=== PATIENT | male | born 1965 | race Two or more races ===

== ENCOUNTER 2019-10-03 13:29 | Emergency (ER) | payer BC ==
[~2019-10-03] VITALS: Ht 170.2 cm; Wt 95.3 kg
[2019-10-03 14:57] LABS: Basophils # (auto) 0.1 uL; Eosinophils # (auto) 0.3 uL; Eosinophils % (auto) 2.6 % (0.0-7.0); Hemoglobin 15.8 g/dL (13.5-17.5); Lymphocytes # (auto) 2.7 uL; Mean Corpuscular Hemoglobin 30.9 pg (28.0-32.0); Mean Corpuscular Hgb Conc. 34.5 g/dL (32.0-36.0); Mean Corpuscular Volume 89.7 fL (80.0-100.0); Monocytes # (auto) 0.7 uL; Monocytes % (auto) 7.3 % (0.0-12.0); Neutrophils # (auto) 5.9 uL; Neutrophils % (auto) 61.1 % (37.0-80.0); Nucleated Red Blood Cells % 0.2 %; Platelet Count (auto) 262 10^3/uL (140-450); Red Blood Cells 5.12 10^6/uL (4.5-5.90); Red Cell Distribution Width 13.5 % (11.8-14.3); White Blood Cell 9.7 10^3/uL (4.4-10.8)
[2019-10-03 15:16] LABS: Albumin 3.3 g/dL (3.4-5.0); Calcium 9.1 mg/dL (8.5-10.1)
[2019-10-03 15:20] LABS: BUN/Creatinine Ratio 11.9; Bilirubin, Total 0.3 mg/dL (0.2-1.0)
[2019-10-03 16:09] VITALS: BP 143/93
== END 2019-10-03 16:16 | disposition home or self-care (01) ==
LOC: ER 13:29
DX: L03.115 Cellulitis of right lower limb (principal); E11.65 Type 2 diabetes mellitus with hyperglycemia
CPT/HCPCS: 36415; 73630; 80053; 85025; 87040

== ENCOUNTER 2021-11-11 11:57 | Inpatient (IN) | payer BC, MEDICAID ==
[2021-11-11] VITALS (7 sets, daily range): BP systolic 120–183; BP diastolic 66–113
[~2021-11-11] VITALS: Ht 157.5 cm; Wt 69.4 kg
[2021-11-11] MEDS ORDERED: EPINEPHrine HCL 1 MG/10 ML SYRG IV ONE (11:58)
[2021-11-11] MEDS ORDERED: MIDAZOLAM DRIP 50 mg/50mL 50 ML IV ONE (12:01)
[2021-11-11] MEDS ORDERED: HEPARIN SODIUM (PORCINE) 5000 UNITS/ML 1ML VIAL ONE (12:08)
[2021-11-11] MEDS ORDERED: SODIUM CHL 0.9% 50 ML ONE (12:09)
[2021-11-11] MEDS ORDERED: ANGIOMAX 250 MG VIAL IV ONE (12:09)
[2021-11-11] MEDS ORDERED: HEPARIN 1,000 UNITS/ml 1ML VIAL IV ONE (12:15)
[2021-11-11 12:32] LABS: Basophils # (auto) 0 10 ^3/uL (0-0.2); Basophils % (auto) 0.4 % (0.0-2.0); Eosinophils # (auto) 0 10 ^3/uL (0-0.8); Hematocrit 42.1 % (41.0-53.0); Hemoglobin 13.6 g/dL (13.5-17.5); Lymphocytes % (auto) 8.2 % (10.0-50.0); Mean Corpuscular Hgb Conc. 32.2 g/dL (32.0-36.0); Monocytes # (auto) 0.6 10 ^3/uL (0-1.3); Monocytes % (auto) 4.4 % (0.0-12.0); Neutrophils # (auto) 11.1 10 ^3/uL (1.6-8.6); Nucleated Red Blood Cells % 0.2 %; Red Blood Cells 4.52 10^6/uL (4.5-5.90); Red Cell Distribution Width 14.6 % (11.8-14.3); White Blood Cell 12.8 10^3/uL (4.4-10.8)
[2021-11-11] MEDS ORDERED: PROPOFOL 100 ML IV ONE (12:40)
[2021-11-11 12:45] LABS: Albumin 2.2 g/dL (3.4-5.0); Calcium 8.1 mg/dL (8.5-10.1); Magnesium 3.6 mg/dL (1.6-2.6); Potassium 4.8 mmol/L (3.5-5.1)
[2021-11-11] MEDS ORDERED: NOREPINEPHRINE 8 MG/250ML KIT 250 ML IV ONE (12:51)
[2021-11-11 12:52] LABS: Bilirubin, Total 0.3 mg/dL (0.2-1.0); Total Protein 6.1 g/dL (6.4-8.2)
[2021-11-11] MEDS ORDERED: DOPamine 1600MCG/ML D5W 250 ML IV ONE (12:54)
[2021-11-11 12:55] LABS: Urine Bacteria MANY /hpf (None Seen); Urine Blood Negative /uL (Negative); Urine Specific Gravity 1.016 (1.001-1.035); Urine Sperm PRESENT /hpf (None Seen); Urine WBC 2 /hpf (0 - 3)
[2021-11-11] MEDS ORDERED: ATROPINE SULF 1 MG/10ml SYR ONE (13:12)
[2021-11-11] MEDS ORDERED: ADENOSINE 6 MG/2 ML INJ IV ONE (13:15)
[2021-11-11] MEDS ORDERED: IOHEXOL 350 MG/ML 100ML IJ ONE (13:23)
[2021-11-11] MEDS ORDERED: ASPirin 325 MG TAB ONE (13:28)
[2021-11-11] MEDS ORDERED: TICAGRELOR 90 MG TAB ONE (13:28)
[2021-11-11] MEDS ORDERED: EPTIFIBATIDE INJ (2MG/ML) 10ML VIAL IV ONE (13:37)
[2021-11-11 13:50] LABS: INR 0.99 (0.9-1.15); Partial Thromboplastin Time 40.5 sec (23.6-33.0)
[2021-11-11] MEDS ORDERED: NITROGLYCERIN 0.4 MG SL TAB SL PRN ×2 (14:30)
[2021-11-11] MEDS ORDERED: MORPHINE SULFATE INJECTION 2 MG/ML SYRG IV PRN ×3 (14:30→15:30)
[2021-11-11] MEDS: fentaNYL Drip 2500mCg/250mlNS 250 ML IV SCH (14:30)
[2021-11-11] MEDS: NOREPINEPHRINE 8 MG/250ML KIT 250 ML IV SCH (14:50)
[2021-11-11] MEDS: PROPOFOL 100 ML IV SCH ×4 (14:50→21:52)
[2021-11-11] MEDS: MIDAZOLAM DRIP 50 mg/50mL 50 ML IV SCH ×3 (14:51→18:24)
[2021-11-11] MEDS: DOPamine 1600MCG/ML D5W 250 ML IV SCH (14:53)
[2021-11-11] MEDS ORDERED: ACCU-CHEK COMFORT CURVE STRIP VI SCH (15:00)
[2021-11-11] MEDS ORDERED: SODIUM CHLORIDE 0.9% 2,000 ML IV ONE (15:00)
[2021-11-11] MEDS ORDERED: InsuLIN R (HUMAN) 100 UNITS in SODIUM CHL 0.9% 99 ML IV SCH (15:00)
[2021-11-11] MEDS ORDERED: VANCOMYCIN PER PHARMACY 1,000 MG IV SCH (15:00)
[2021-11-11] MEDS ORDERED: DEXTROSE (50%) 50ML SYRG IV PRN ×2 (15:00→21:15)
[2021-11-11] MEDS ORDERED: D5W/SOD CHLO 0.9% 1,000 ML IV PRN (15:00)
[2021-11-11] MEDS ORDERED: DexAMETHasone INJECTION 10 MG in SODIUM CHL 3% 500 ML IV ONE (15:00)
[2021-11-11] MEDS ORDERED: NOREPINEPHRINE 8 MG/250ML KIT 250 ML IV SCH (15:00)
[2021-11-11] MEDS ORDERED: INSULIN LANTUS (GLARGINE) 1 /0.01ml (100units/ml) SC ONE (15:00)
[2021-11-11] MEDS ORDERED: MORPHINE SULFATE 4 MG/ML SYR/VIAL IV PRN (15:00)
[2021-11-11] MEDS ORDERED: SOD CHL 0.9%/ KCL 20MEQ 1,000 ML IV PRN (15:00)
[2021-11-11] MEDS ORDERED: VANCOMYCIN 1GM/250ML 250 ML IV ONE (15:30)
[2021-11-11] MEDS ORDERED: DexAMETHasone SOD PHOS 10MG/1ML VIAL INJ IV ONE (15:30)
[2021-11-11] MEDS ORDERED: REMDESIVIR PER PHARMACY 0 ML IV SCH (16:15)
[2021-11-11] MEDS ORDERED: ALBUMIN 25% 100 ML IV ONE (16:15)
[2021-11-11] MEDS ORDERED: ALBUTEROL SULF HFA 90MCG INH 200DOSE IN PRN (16:15)
[2021-11-11] MEDS ORDERED: ALBUMIN 25% 100 ML IV SCH (16:15)
[2021-11-11] MEDS ORDERED: PANTOPRAZOLE 40 MG/10 ML VIAL INJ IV ONE (16:15)
[2021-11-11 16:18] LABS: Anion Gap 15 (5-15); Blood Urea Nitrogen 36 mg/dL (7-18); Carbon Dioxide 16 mmol/L (21-32); Chloride 99 mmol/L (98-107); Magnesium 3.7 mg/dL (1.6-2.6); Sodium 130 mmol/L (136-145)
[2021-11-11 16:25] LABS: Cholesterol 103 mg/dL (< 200)
[2021-11-11 16:28] LABS: GFR African American 44 mL/min; GFR Non-African American 37 mL/min; Phosphorus 6.1 mg/dL (2.5-4.90)
[2021-11-11 16:28] LABS: HDL Cholesterol 44 mg/dL (40-59); LDL Cholesterol 48 mg/dL (< 100); Triglycerides 194 mg/dL (< 150)
[2021-11-11 16:29] LABS: INR 3.08 (0.9-1.15)
[2021-11-11 16:36] LABS: Lactic Acid w/Reflex 6.1 mmol/L (0.4-2.0)
[2021-11-11 16:43] LABS: Thyroid Stimulating Hormone 0.81 uIU/mL (0.358-3.74)
[2021-11-11 17:17] LABS: Glucose 601 mg/dL (74-106); Potassium 6.3 mmol/L (3.5-5.1)
[2021-11-11] MEDS: FUROSEMIDE 20 MG/2 ML VIAL IV SCH (18:00)
[2021-11-11 19:23] LABS: Calcium 7.4 mg/dL (8.5-10.1)
[2021-11-11] MEDS ORDERED: REMDESIVIR 200 MG in NS 210ml LOADING DOSE ADULT IV ONE (20:00)
[2021-11-11] MEDS: SODIUM CHLORIDE 0.9% 1,000 ML IV SCH ×2 (20:00→22:30)
[2021-11-11 20:29] LABS: Potassium 5.7 mmol/L (3.5-5.1)
[2021-11-11] MEDS ORDERED: SODIUM ZIRCONIUM CYCL 10 GM PAK PO ONE (21:15)
[2021-11-11] MEDS: InsuLIN R (HUMAN) 100 UNITS in SODIUM CHL 0.9% 99 ML IV SCH ×2 (21:30→23:00)
[2021-11-11] MEDS: SODIUM CHLOR 0.9% PF (SALINE LOCK) 10ML VIAL/SYR IV SCH (21:56)
[2021-11-11] MEDS: POTASSIUM CHL 20 Meq TABLET PO SCH (21:57)
[2021-11-11] MEDS ORDERED: BUDESONIDE (INHALATION) 180 MCG IH IN SCH (22:00)
[2021-11-11] MEDS: TICAGRELOR 90 MG TAB PO SCH (22:00)
[2021-11-11] MEDS: BUDESONIDE (INHALATION) 0.5 MG/2 ML NEB NEB SCH (22:07)
[2021-11-11] MEDS: ALBUTEROL SULF 2.5 MG/0.5ML(0.5%) NEB SOLN NEB PRN (22:07)
[2021-11-11] MEDS: ACCU-CHEK COMFORT CURVE STRIP VI SCH (22:30)
[2021-11-11] MEDS ORDERED: SODIUM BICARBONATE 8.4 % INJ 50ML VIAL IV ONE (22:30)
[2021-11-11] MEDS: SODIUM BICARBONATE 50ML VIAL 100 ML in SOD CHL 0.45% 1,000 ML IV SCH (23:00)
[2021-11-12] VITALS (30 sets, daily range): BP systolic 88–134; BP diastolic 50–79
[2021-11-12] MEDS: PIPERACILLIN-TAZOB 3.375GM 100 ML IV SCH ×6 (00:11→23:47)
[2021-11-12] MEDS: ACCU-CHEK COMFORT CURVE STRIP VI SCH ×7 (00:12→23:47)
[2021-11-12] MEDS: ALBUMIN 25% 100 ML IV SCH ×2 (00:14→08:00)
[2021-11-12] MEDS: InsuLIN R (HUMAN) 100 UNITS in SODIUM CHL 0.9% 99 ML IV SCH (00:19)
[2021-11-12 03:04] LABS: Basophils # (auto) 0 10 ^3/uL (0-0.2); Basophils % (auto) 0.2 % (0.0-2.0); Eosinophils # (auto) 0 10 ^3/uL (0-0.8); Hematocrit 33.4 % (41.0-53.0); Hemoglobin 11.4 g/dL (13.5-17.5); Lymphocytes # (auto) 0.5 10 ^3/uL (0.4-5.4); Lymphocytes % (auto) 4.7 % (10.0-50.0); Mean Corpuscular Hemoglobin 29.6 pg (28.0-32.0); Mean Corpuscular Hgb Conc. 34.1 g/dL (32.0-36.0); Mean Corpuscular Volume 86.6 fL (80.0-100.0); Monocytes # (auto) 0.8 10 ^3/uL (0-1.3); Monocytes % (auto) 8.4 % (0.0-12.0); Neutrophils # (auto) 8.5 10 ^3/uL (1.6-8.6); Neutrophils % (auto) 86.7 % (37.0-80.0); Nucleated Red Blood Cells % 0.1 %; Red Blood Cells 3.85 10^6/uL (4.5-5.90); Red Cell Distribution Width 14.5 % (11.8-14.3); White Blood Cell 9.8 10^3/uL (4.4-10.8)
[2021-11-12 03:15] LABS: INR 1.06 (0.9-1.15); Partial Thromboplastin Time 35.7 sec (23.6-33.0)
[2021-11-12 03:37] LABS: BUN/Creatinine Ratio 19.1; Calcium 7.1 mg/dL (8.5-10.1); Magnesium 2.3 mg/dL (1.6-2.6); Potassium 3.8 mmol/L (3.5-5.1)
[2021-11-12 03:39] LABS: Bilirubin, Total 0.8 mg/dL (0.2-1.0); Phosphorus 2.5 mg/dL (2.5-4.90); Total Protein 5.9 g/dL (6.4-8.2)
[2021-11-12] MEDS: BUDESONIDE (INHALATION) 0.5 MG/2 ML NEB NEB SCH ×2 (06:10→22:31)
[2021-11-12] MEDS: ALBUTEROL SULF 2.5 MG/0.5ML(0.5%) NEB SOLN NEB PRN ×2 (06:10→22:31)
[2021-11-12] MEDS: SODIUM CHLOR 0.9% PF (SALINE LOCK) 10ML VIAL/SYR IV SCH ×3 (06:22→21:55)
[2021-11-12] MEDS: FUROSEMIDE 20 MG/2 ML VIAL IV SCH ×2 (06:22→17:20)
[2021-11-12] MEDS: PROPOFOL 100 ML IV SCH ×4 (07:58→19:07)
[2021-11-12] MEDS: MIDAZOLAM DRIP 50 mg/50mL 50 ML IV SCH ×3 (07:59→16:07)
[2021-11-12] MEDS: DOPamine 1600MCG/ML D5W 250 ML IV SCH (08:19)
[2021-11-12] MEDS: ENOXAPARIN SOD 40 MG/0.4 ML SYRINGE SC SCH (10:00)
[2021-11-12] MEDS ORDERED: INSULIN LANTUS (GLARGINE) 1 /0.01ml (100units/ml) SC SCH (10:00)
[2021-11-12] MEDS: PANTOPRAZOLE 40 MG/10 ML VIAL INJ IV SCH (10:00)
[2021-11-12] MEDS: ASPirin 81 mg TAB PO SCH (10:00)
[2021-11-12] MEDS ORDERED: DexAMETHasone SOD PHOS 10MG/1ML VIAL INJ IV ONE (10:30)
[2021-11-12] MEDS ORDERED: INSULIN LANTUS (GLARGINE) 1 /0.01ml (100units/ml) SC ONE (11:00)
[2021-11-12] MEDS: CHOLECALCIFEROL (VITD3) 2,000 UNIT CAP/TAB PO SCH (11:06)
[2021-11-12] MEDS: ASCORBIC ACID 1,000 MG TAB PO SCH (11:06)
[2021-11-12] MEDS: TICAGRELOR 90 MG TAB PO SCH ×2 (11:07→21:56)
[2021-11-12] MEDS: IVERMECTIN 3 MG TAB PO SCH (11:07)
[2021-11-12] MEDS: POTASSIUM CHL 20 Meq TABLET PO SCH ×2 (11:08→21:56)
[2021-11-12] MEDS: SODIUM BICARBONATE 50ML VIAL 100 ML in SOD CHL 0.45% 1,000 ML IV SCH (11:27)
[2021-11-12 11:39] LABS: BUN/Creatinine Ratio 16.9; Calcium 6.6 mg/dL (8.5-10.1); Potassium 3.5 mmol/L (3.5-5.1)
[2021-11-12] MEDS: NOREPINEPHRINE 8 MG/250ML KIT 250 ML IV SCH (13:00)
[2021-11-12] MEDS: fentaNYL Drip 2500mCg/250mlNS 250 ML IV SCH (14:23)
[2021-11-12] MEDS: REMDESIVIR 100mg 100 MG in SODIUM CHL 0.9% 230 ML IV SCH (14:58)
[2021-11-12] MEDS ORDERED: Glucerna 1.2 Cal 1Liter BOTTLE GT SCH (15:00)
[2021-11-12] MEDS ORDERED: DEXTROSE (50%) 50ML SYRG IV PRN (16:45)
[2021-11-12] MEDS: ACETAMINOPHEN 500 MG TAB PO PRN (17:21)
[2021-11-12] MEDS: InsuLIN REG 1unit/0.01ml Soln (100units/ml) SC SCH ×2 (18:00→23:48)
[2021-11-12] MEDS: ATORVASTATIN 20 MG TAB PO SCH ×2 (21:56)
[2021-11-12 22:55] LABS: BUN/Creatinine Ratio 15.4; Calcium 7.3 mg/dL (8.5-10.1)
[2021-11-13] VITALS (30 sets, daily range): BP systolic 99–141; BP diastolic 65–82
[2021-11-13] MEDS: NOREPINEPHRINE 8 MG/250ML KIT 250 ML IV SCH ×2 (01:00→13:08)
[2021-11-13] MEDS: SODIUM BICARBONATE 50ML VIAL 100 ML in SOD CHL 0.45% 1,000 ML IV SCH (01:00)
[2021-11-13] MEDS: MIDAZOLAM DRIP 50 mg/50mL 50 ML IV SCH ×4 (02:16→17:38)
[2021-11-13 04:46] LABS: Basophils # (auto) 0 10 ^3/uL (0-0.2); Eosinophils # (auto) 0 10 ^3/uL (0-0.8); Hematocrit 33.8 % (41.0-53.0); Hemoglobin 11.6 g/dL (13.5-17.5); Lymphocytes # (auto) 0.2 10 ^3/uL (0.4-5.4); Lymphocytes % (auto) 1.7 % (10.0-50.0); Mean Corpuscular Hgb Conc. 34.2 g/dL (32.0-36.0); Mean Corpuscular Volume 87.8 fL (80.0-100.0); Monocytes # (auto) 0.5 10 ^3/uL (0-1.3); Monocytes % (auto) 4.1 % (0.0-12.0); Neutrophils # (auto) 10.6 10 ^3/uL (1.6-8.6); Neutrophils % (auto) 94.2 % (37.0-80.0); Red Blood Cells 3.85 10^6/uL (4.5-5.90); Red Cell Distribution Width 14.6 % (11.8-14.3); White Blood Cell 11.3 10^3/uL (4.4-10.8)
[2021-11-13 05:01] LABS: BUN/Creatinine Ratio 16.1; Calcium 7.8 mg/dL (8.5-10.1); Potassium 4.2 mmol/L (3.5-5.1)
[2021-11-13] MEDS: ACCU-CHEK COMFORT CURVE STRIP VI SCH ×7 (05:44→23:28)
[2021-11-13] MEDS: FUROSEMIDE 20 MG/2 ML VIAL IV SCH ×2 (05:44→17:32)
[2021-11-13] MEDS: SODIUM CHLOR 0.9% PF (SALINE LOCK) 10ML VIAL/SYR IV SCH ×3 (05:44→21:33)
[2021-11-13] MEDS: PIPERACILLIN-TAZOB 3.375GM 100 ML IV SCH ×4 (05:44→23:28)
[2021-11-13] MEDS: InsuLIN REG 1unit/0.01ml Soln (100units/ml) SC SCH ×5 (05:45→23:25)
[2021-11-13] MEDS: ALBUTEROL SULF 2.5 MG/0.5ML(0.5%) NEB SOLN NEB PRN ×2 (06:34→23:13)
[2021-11-13] MEDS: BUDESONIDE (INHALATION) 0.5 MG/2 ML NEB NEB SCH ×2 (06:34→23:14)
[2021-11-13] MEDS ORDERED: DEXTROSE (50%) 50ML SYRG IV PRN (08:30)
[2021-11-13] MEDS: TICAGRELOR 90 MG TAB PO SCH ×2 (09:31→21:31)
[2021-11-13] MEDS: CHOLECALCIFEROL (VITD3) 2,000 UNIT CAP/TAB PO SCH (09:31)
[2021-11-13] MEDS: ASPirin 81 mg TAB PO SCH (09:31)
[2021-11-13] MEDS: PANTOPRAZOLE 40 MG/10 ML VIAL INJ IV SCH (09:31)
[2021-11-13] MEDS: POTASSIUM CHL 20 Meq TABLET PO SCH ×2 (09:31→21:31)
[2021-11-13] MEDS: DexAMETHasone SOD PHOS 10MG/1ML VIAL INJ IV SCH (09:31)
[2021-11-13] MEDS: IVERMECTIN 3 MG TAB PO SCH (09:32)
[2021-11-13] MEDS: ASCORBIC ACID 1,000 MG TAB PO SCH (09:43)
[2021-11-13] MEDS ORDERED: INSULIN LANTUS (GLARGINE) 1 /0.01ml (100units/ml) SC SCH ×2 (10:00)
[2021-11-13] MEDS: ENOXAPARIN SOD 40 MG/0.4 ML SYRINGE SC SCH ×2 (10:00→11:10)
[2021-11-13 13:06] LABS: Hematocrit 34.8 % (41.0-53.0); Hemoglobin 11.5 g/dL (13.5-17.5); Mean Corpuscular Hemoglobin 29.8 pg (28.0-32.0); Mean Corpuscular Hgb Conc. 33.2 g/dL (32.0-36.0); Mean Corpuscular Volume 89.8 fL (80.0-100.0); Red Blood Cells 3.88 10^6/uL (4.5-5.90); Red Cell Distribution Width 15.1 % (11.8-14.3); White Blood Cell 14.4 10^3/uL (4.4-10.8)
[2021-11-13 13:08] LABS: Basophils % (manual) 0 (0.0-2.0); Blast Cells 0; Eosinophils % (manual) 0 (0-7); Metamyelocytes % 0; Myelocytes % 0; Promyelocytes % 0; Reactive Lymphocytes 0
[2021-11-13 13:27] LABS: Band Neutrophils % (manual) 12; Lymphocytes % (manual) 5 (10.0-50.0); Monocytes % (manual) 8 (0-12)
[2021-11-13] MEDS: PROPOFOL 100 ML IV SCH ×3 (14:31→21:32)
[2021-11-13] MEDS: REMDESIVIR 100mg 100 MG in SODIUM CHL 0.9% 230 ML IV SCH (15:32)
[2021-11-13] MEDS: fentaNYL Drip 2500mCg/250mlNS 250 ML IV SCH (17:35)
[2021-11-13] MEDS: DOPamine 1600MCG/ML D5W 250 ML IV SCH (17:36)
[2021-11-13] MEDS: ATORVASTATIN 20 MG TAB PO SCH (21:31)
[2021-11-14] VITALS (41 sets, daily range): BP systolic 91–127; BP diastolic 58–99
[2021-11-14] MEDS ORDERED: INSULIN LANTUS (GLARGINE) 1 /0.01ml (100units/ml) SC ONE
[2021-11-14] MEDS: MIDAZOLAM DRIP 50 mg/50mL 50 ML IV SCH ×5 (01:22→18:02)
[2021-11-14 04:50] LABS: Basophils # (auto) 0 10 ^3/uL (0-0.2); Eosinophils # (auto) 0 10 ^3/uL (0-0.8); Eosinophils % (auto) 0.1 % (0.0-7.0); Hematocrit 33.2 % (41.0-53.0); Hemoglobin 11.2 g/dL (13.5-17.5); Lymphocytes # (auto) 0.2 10 ^3/uL (0.4-5.4); Lymphocytes % (auto) 1.2 % (10.0-50.0); Mean Corpuscular Hemoglobin 29.5 pg (28.0-32.0); Mean Corpuscular Hgb Conc. 33.6 g/dL (32.0-36.0); Mean Corpuscular Volume 87.7 fL (80.0-100.0); Monocytes # (auto) 0.7 10 ^3/uL (0-1.3); Monocytes % (auto) 4.7 % (0.0-12.0); Neutrophils # (auto) 13.3 10 ^3/uL (1.6-8.6); Red Blood Cells 3.79 10^6/uL (4.5-5.90); Red Cell Distribution Width 14.8 % (11.8-14.3); White Blood Cell 14.1 10^3/uL (4.4-10.8)
[2021-11-14 04:58] LABS: Calcium 6.6 mg/dL (8.5-10.1); Potassium 3.8 mmol/L (3.5-5.1)
[2021-11-14 04:59] LABS: BUN/Creatinine Ratio 15.1
[2021-11-14] MEDS: FUROSEMIDE 20 MG/2 ML VIAL IV SCH (05:57)
[2021-11-14] MEDS: SODIUM CHLOR 0.9% PF (SALINE LOCK) 10ML VIAL/SYR IV SCH ×3 (05:57→22:02)
[2021-11-14] MEDS: ACCU-CHEK COMFORT CURVE STRIP VI SCH ×6 (05:57→17:39)
[2021-11-14] MEDS: PIPERACILLIN-TAZOB 3.375GM 100 ML IV SCH (05:57)
[2021-11-14] MEDS: InsuLIN REG 1unit/0.01ml Soln (100units/ml) SC SCH ×3 (05:58→17:21)
[2021-11-14] MEDS: BUDESONIDE (INHALATION) 0.5 MG/2 ML NEB NEB SCH ×2 (09:00→18:59)
[2021-11-14] MEDS: ALBUTEROL SULF 2.5 MG/0.5ML(0.5%) NEB SOLN NEB PRN ×3 (09:00→18:59)
[2021-11-14] MEDS: ASPirin 81 mg TAB PO SCH (09:39)
[2021-11-14] MEDS: PANTOPRAZOLE 40 MG/10 ML VIAL INJ IV SCH (09:39)
[2021-11-14] MEDS: DexAMETHasone SOD PHOS 10MG/1ML VIAL INJ IV SCH (09:39)
[2021-11-14] MEDS: ENOXAPARIN SOD 40 MG/0.4 ML SYRINGE SC SCH (09:39)
[2021-11-14] MEDS: CHOLECALCIFEROL (VITD3) 2,000 UNIT CAP/TAB PO SCH (09:40)
[2021-11-14] MEDS: ASCORBIC ACID 1,000 MG TAB PO SCH (09:40)
[2021-11-14] MEDS: IVERMECTIN 3 MG TAB PO SCH (09:40)
[2021-11-14] MEDS ORDERED: INSULIN LANTUS (GLARGINE) 1 /0.01ml (100units/ml) SC SCH (10:00)
[2021-11-14] MEDS: POTASSIUM CHL 20 Meq TABLET PO SCH (11:44)
[2021-11-14] MEDS: TICAGRELOR 90 MG TAB PO SCH ×2 (11:44→22:02)
[2021-11-14] MEDS: PROPOFOL 100 ML IV SCH ×3 (12:07→18:02)
[2021-11-14 12:41] LABS: Alcohol, Urine < 3.0 mg/dL (0-10); Amphetamine Screen, Urine NEGATIVE (NEGATIVE); Barbiturate Scree,Urine NEGATIVE (NEGATIVE); Benzodiazephine Screen, Urine POSITIVE (NEGATIVE); Cannabinoid Screen, Urine NEGATIVE (NEGATIVE); Cocaine Screen, Urine NEGATIVE (NEGATIVE); Opiate Scree,Urine NEGATIVE (NEGATIVE); Phencyclidine Screen, Urine NEGATIVE (NEGATIVE)
[2021-11-14] MEDS: REMDESIVIR 100mg 100 MG in SODIUM CHL 0.9% 230 ML IV SCH (14:21)
[2021-11-14] MEDS: NOREPINEPHRINE 8 MG/250ML KIT 250 ML IV SCH (15:59)
[2021-11-14] MEDS: ATORVASTATIN 20 MG TAB PO SCH (22:03)
[2021-11-14] MEDS: INSULIN LANTUS (GLARGINE) 1 /0.01ml (100units/ml) SC SCH (22:07)
[2021-11-15] VITALS (66 sets, daily range): BP systolic 66–159; BP diastolic 57–98
[2021-11-15] MEDS: InsuLIN REG 1unit/0.01ml Soln (100units/ml) SC SCH ×4 (00:01→19:25)
[2021-11-15] MEDS: PROPOFOL 100 ML IV SCH (00:35)
[2021-11-15] MEDS: MIDAZOLAM DRIP 50 mg/50mL 50 ML IV SCH (03:21)
[2021-11-15] MEDS: ALBUTEROL SULF 2.5 MG/0.5ML(0.5%) NEB SOLN NEB PRN ×3 (05:45→22:12)
[2021-11-15] MEDS: SODIUM CHLOR 0.9% PF (SALINE LOCK) 10ML VIAL/SYR IV SCH ×3 (05:46→21:35)
[2021-11-15] MEDS: ACCU-CHEK COMFORT CURVE STRIP VI SCH ×8 (05:46→18:00)
[2021-11-15 05:47] LABS: Potassium 3.8 mmol/L (3.5-5.1)
[2021-11-15 05:54] LABS: Albumin 2.2 g/dL (3.4-5.0); BUN/Creatinine Ratio 18.2; Calcium 6.7 mg/dL (8.5-10.1); Total Protein 5.4 g/dL (6.4-8.2)
[2021-11-15 08:17] LABS: Basophils # (auto) 0 10 ^3/uL (0-0.2); Basophils % (auto) 0.2 % (0.0-2.0); Eosinophils # (auto) 0 10 ^3/uL (0-0.8); Hematocrit 31.8 % (41.0-53.0); Hemoglobin 10.8 g/dL (13.5-17.5); Lymphocytes # (auto) 0.2 10 ^3/uL (0.4-5.4); Lymphocytes % (auto) 1.5 % (10.0-50.0); Mean Corpuscular Hemoglobin 29.8 pg (28.0-32.0); Mean Corpuscular Volume 87.7 fL (80.0-100.0); Monocytes # (auto) 0.8 10 ^3/uL (0-1.3); Monocytes % (auto) 6.4 % (0.0-12.0); Neutrophils # (auto) 12.1 10 ^3/uL (1.6-8.6); Neutrophils % (auto) 91.9 % (37.0-80.0); Red Blood Cells 3.63 10^6/uL (4.5-5.90); White Blood Cell 13.1 10^3/uL (4.4-10.8)
[2021-11-15] MEDS: BUDESONIDE (INHALATION) 0.5 MG/2 ML NEB NEB SCH ×2 (10:00→22:12)
[2021-11-15] MEDS: INSULIN LANTUS (GLARGINE) 1 /0.01ml (100units/ml) SC SCH (10:00)
[2021-11-15] MEDS: fentaNYL Drip 2500mCg/250mlNS 250 ML IV SCH ×2 (10:21→14:30)
[2021-11-15] MEDS: PANTOPRAZOLE 40 MG/10 ML VIAL INJ IV SCH (10:24)
[2021-11-15] MEDS: DexAMETHasone SOD PHOS 10MG/1ML VIAL INJ IV SCH (10:24)
[2021-11-15] MEDS: TICAGRELOR 90 MG TAB PO SCH ×2 (10:24→21:35)
[2021-11-15] MEDS: IVERMECTIN 3 MG TAB PO SCH (10:24)
[2021-11-15] MEDS: ASPirin 81 mg TAB PO SCH (10:24)
[2021-11-15] MEDS: ASCORBIC ACID 1,000 MG TAB PO SCH (10:24)
[2021-11-15] MEDS: CHOLECALCIFEROL (VITD3) 2,000 UNIT CAP/TAB PO SCH (10:25)
[2021-11-15] MEDS: ENOXAPARIN SOD 40 MG/0.4 ML SYRINGE SC SCH (10:27)
[2021-11-15] MEDS ORDERED: METOPROLOL TARTRATE 25 MG TAB PO ONE (11:15)
[2021-11-15] MEDS: NOREPINEPHRINE 8 MG/250ML KIT 250 ML IV SCH (14:30)
[2021-11-15] MEDS ORDERED: DEXTROSE 10% 250 ML IV ONE (17:45)
[2021-11-15] MEDS: ATORVASTATIN 20 MG TAB PO SCH (21:35)
[2021-11-15] MEDS: METOPROLOL TARTRATE 25 MG TAB PO SCH (21:35)
[2021-11-16] VITALS (68 sets, daily range): BP systolic 87–127; BP diastolic 55–76
[2021-11-16] MEDS: ACETAMINOPHEN 500 MG TAB PO PRN (02:57)
[2021-11-16 05:44] LABS: Hematocrit 35.5 % (41.0-53.0); Hemoglobin 11.5 g/dL (13.5-17.5); Mean Corpuscular Hemoglobin 28.8 pg (28.0-32.0); Mean Corpuscular Hgb Conc. 32.4 g/dL (32.0-36.0); Red Blood Cells 3.99 10^6/uL (4.5-5.90); Red Cell Distribution Width 15.4 % (11.8-14.3); White Blood Cell 15.3 10^3/uL (4.4-10.8)
[2021-11-16] MEDS: InsuLIN REG 1unit/0.01ml Soln (100units/ml) SC SCH ×4 (06:00→18:29)
[2021-11-16 06:03] LABS: Calcium 7.1 mg/dL (8.5-10.1); Potassium 4.1 mmol/L (3.5-5.1)
[2021-11-16 06:04] LABS: BUN/Creatinine Ratio 27.8
[2021-11-16 06:06] LABS: Basophils % (manual) 0 (0.0-2.0); Blast Cells 0; Eosinophils % (manual) 0 (0-7); Metamyelocytes % 0; Myelocytes % 0; Promyelocytes % 0; Reactive Lymphocytes 0
[2021-11-16] MEDS: BUDESONIDE (INHALATION) 0.5 MG/2 ML NEB NEB SCH ×2 (06:06→22:06)
[2021-11-16] MEDS: ALBUTEROL SULF 2.5 MG/0.5ML(0.5%) NEB SOLN NEB PRN ×2 (06:06→22:06)
[2021-11-16] MEDS: ACCU-CHEK COMFORT CURVE STRIP VI SCH ×8 (06:29→18:29)
[2021-11-16] MEDS: SODIUM CHLOR 0.9% PF (SALINE LOCK) 10ML VIAL/SYR IV SCH ×3 (06:29→21:02)
[2021-11-16] MEDS: PROPOFOL 100 ML IV SCH ×2 (06:30→21:03)
[2021-11-16 07:05] LABS: Band Neutrophils % (manual) 15; Lymphocytes % (manual) 5 (10.0-50.0); Monocytes % (manual) 5 (0-12)
[2021-11-16] MEDS: IVERMECTIN 3 MG TAB PO SCH (10:00)
[2021-11-16] MEDS: METOPROLOL TARTRATE 25 MG TAB PO SCH ×2 (10:00→21:02)
[2021-11-16] MEDS: TICAGRELOR 90 MG TAB PO SCH ×2 (10:00→21:02)
[2021-11-16] MEDS: ASPirin 81 mg TAB PO SCH (10:00)
[2021-11-16] MEDS: PANTOPRAZOLE 40 MG/10 ML VIAL INJ IV SCH (10:00)
[2021-11-16] MEDS: DexAMETHasone SOD PHOS 10MG/1ML VIAL INJ IV SCH (10:00)
[2021-11-16] MEDS: ASCORBIC ACID 1,000 MG TAB PO SCH (10:00)
[2021-11-16] MEDS: ENOXAPARIN SOD 40 MG/0.4 ML SYRINGE SC SCH (10:00)
[2021-11-16] MEDS: CHOLECALCIFEROL (VITD3) 2,000 UNIT CAP/TAB PO SCH (10:00)
[2021-11-16] MEDS: FREE WATER GT SCH ×3 (14:00→21:00)
[2021-11-16] MEDS: MIDAZOLAM DRIP 50 mg/50mL 50 ML IV SCH (14:30)
[2021-11-16] MEDS: NOREPINEPHRINE 8 MG/250ML KIT 250 ML IV SCH (14:30)
[2021-11-16] MEDS: fentaNYL Drip 2500mCg/250mlNS 250 ML IV SCH (14:30)
[2021-11-16] MEDS: ATORVASTATIN 20 MG TAB PO SCH (21:02)
[2021-11-17] VITALS (67 sets, daily range): BP systolic 94–154; BP diastolic 47–78
[2021-11-17] MEDS: ACCU-CHEK COMFORT CURVE STRIP VI SCH ×8 (00:24→17:49)
[2021-11-17] MEDS: FREE WATER GT SCH ×6 (01:45→21:19)
[2021-11-17 03:58] LABS: Basophils # (auto) 0.1 10 ^3/uL (0-0.2); Basophils % (auto) 0.4 % (0.0-2.0); Eosinophils # (auto) 0 10 ^3/uL (0-0.8); Hematocrit 34.5 % (41.0-53.0); Hemoglobin 11.4 g/dL (13.5-17.5); Lymphocytes # (auto) 0.1 10 ^3/uL (0.4-5.4); Mean Corpuscular Hemoglobin 29.2 pg (28.0-32.0); Mean Corpuscular Hgb Conc. 32.9 g/dL (32.0-36.0); Mean Corpuscular Volume 88.8 fL (80.0-100.0); Monocytes # (auto) 0.4 10 ^3/uL (0-1.3); Monocytes % (auto) 2.4 % (0.0-12.0); Neutrophils # (auto) 14.3 10 ^3/uL (1.6-8.6); Neutrophils % (auto) 96.2 % (37.0-80.0); Nucleated Red Blood Cells % 0.1 %; Red Blood Cells 3.89 10^6/uL (4.5-5.90); Red Cell Distribution Width 15.4 % (11.8-14.3); White Blood Cell 14.9 10^3/uL (4.4-10.8)
[2021-11-17 04:07] LABS: Calcium 7.3 mg/dL (8.5-10.1); Potassium 4.5 mmol/L (3.5-5.1)
[2021-11-17 04:08] LABS: BUN/Creatinine Ratio 32.7
[2021-11-17] MEDS: SODIUM CHLOR 0.9% PF (SALINE LOCK) 10ML VIAL/SYR IV SCH ×3 (05:45→21:19)
[2021-11-17] MEDS: InsuLIN REG 1unit/0.01ml Soln (100units/ml) SC SCH ×4 (06:00→17:48)
[2021-11-17] MEDS: BUDESONIDE (INHALATION) 0.5 MG/2 ML NEB NEB SCH ×2 (06:05→21:55)
[2021-11-17] MEDS: ALBUTEROL SULF 2.5 MG/0.5ML(0.5%) NEB SOLN NEB PRN (06:11)
[2021-11-17] MEDS: PROPOFOL 100 ML IV SCH ×2 (06:42→21:20)
[2021-11-17] MEDS: MIDAZOLAM DRIP 50 mg/50mL 50 ML IV SCH ×2 (06:42→21:21)
[2021-11-17] MEDS: DexAMETHasone SOD PHOS 10MG/1ML VIAL INJ IV SCH (10:54)
[2021-11-17] MEDS: PANTOPRAZOLE 40 MG/10 ML VIAL INJ IV SCH (10:55)
[2021-11-17] MEDS: ASPirin 81 mg TAB PO SCH (10:55)
[2021-11-17] MEDS: METOPROLOL TARTRATE 25 MG TAB PO SCH ×2 (10:55→21:19)
[2021-11-17] MEDS: TICAGRELOR 90 MG TAB PO SCH ×2 (10:55→21:19)
[2021-11-17] MEDS: ASCORBIC ACID 1,000 MG TAB PO SCH (10:56)
[2021-11-17] MEDS: CHOLECALCIFEROL (VITD3) 2,000 UNIT CAP/TAB PO SCH (10:56)
[2021-11-17] MEDS: ENOXAPARIN SOD 40 MG/0.4 ML SYRINGE SC SCH (10:56)
[2021-11-17] MEDS: NOREPINEPHRINE 8 MG/250ML KIT 250 ML IV SCH (14:30)
[2021-11-17] MEDS: fentaNYL Drip 2500mCg/250mlNS 250 ML IV SCH (14:30)
[2021-11-17] MEDS ORDERED: DIGOXIN (250MCG/ML) 2 ML AMPULE IV ONE (16:00)
[2021-11-17] MEDS: DOBUTamine 1000MCG/ML 250 ML IV SCH (16:47)
[2021-11-17] MEDS: ATORVASTATIN 20 MG TAB PO SCH (21:19)
[2021-11-18] VITALS (66 sets, daily range): BP systolic 91–154; BP diastolic 56–83
[2021-11-18] MEDS: PROPOFOL 100 ML IV SCH ×2 (01:47→20:00)
[2021-11-18] MEDS: MIDAZOLAM DRIP 50 mg/50mL 50 ML IV SCH ×2 (01:48→20:00)
[2021-11-18] MEDS: FREE WATER GT SCH ×6 (01:49→22:00)
[2021-11-18 03:39] LABS: Basophils # (auto) 0 10 ^3/uL (0-0.2); Basophils % (auto) 0.2 % (0.0-2.0); Eosinophils # (auto) 0 10 ^3/uL (0-0.8); Eosinophils % (auto) 0.2 % (0.0-7.0); Hemoglobin 10.9 g/dL (13.5-17.5); Lymphocytes # (auto) 0.2 10 ^3/uL (0.4-5.4); Lymphocytes % (auto) 1.1 % (10.0-50.0); Mean Corpuscular Hemoglobin 29.4 pg (28.0-32.0); Mean Corpuscular Volume 89.1 fL (80.0-100.0); Monocytes # (auto) 0.3 10 ^3/uL (0-1.3); Monocytes % (auto) 1.9 % (0.0-12.0); Neutrophils # (auto) 15.2 10 ^3/uL (1.6-8.6); Neutrophils % (auto) 96.6 % (37.0-80.0); Nucleated Red Blood Cells % 0.1 %; Red Blood Cells 3.71 10^6/uL (4.5-5.90); Red Cell Distribution Width 15.2 % (11.8-14.3); White Blood Cell 15.8 10^3/uL (4.4-10.8)
[2021-11-18 03:55] LABS: Calcium 7.5 mg/dL (8.5-10.1)
[2021-11-18] MEDS: SODIUM CHLOR 0.9% PF (SALINE LOCK) 10ML VIAL/SYR IV SCH ×3 (06:00→22:00)
[2021-11-18] MEDS: ACCU-CHEK COMFORT CURVE STRIP VI SCH ×9 (06:00→23:32)
[2021-11-18] MEDS: InsuLIN REG 1unit/0.01ml Soln (100units/ml) SC SCH ×5 (06:00→23:32)
[2021-11-18] MEDS: PANTOPRAZOLE 40 MG/10 ML VIAL INJ IV SCH (09:49)
[2021-11-18] MEDS: ASPirin 81 mg TAB PO SCH (09:49)
[2021-11-18] MEDS: DexAMETHasone SOD PHOS 10MG/1ML VIAL INJ IV SCH (09:49)
[2021-11-18] MEDS: DIGOXIN 0.125 MG TAB PO SCH (09:50)
[2021-11-18] MEDS: TICAGRELOR 90 MG TAB PO SCH ×2 (09:50→22:00)
[2021-11-18] MEDS: METOPROLOL TARTRATE 25 MG TAB PO SCH ×2 (09:51→22:00)
[2021-11-18] MEDS: ENOXAPARIN SOD 40 MG/0.4 ML SYRINGE SC SCH (09:51)
[2021-11-18] MEDS: CHOLECALCIFEROL (VITD3) 2,000 UNIT CAP/TAB PO SCH (09:51)
[2021-11-18] MEDS: ASCORBIC ACID 1,000 MG TAB PO SCH (09:51)
[2021-11-18] MEDS: ALBUTEROL SULF 2.5 MG/0.5ML(0.5%) NEB SOLN NEB PRN ×2 (10:48→22:06)
[2021-11-18] MEDS: BUDESONIDE (INHALATION) 0.5 MG/2 ML NEB NEB SCH ×2 (10:48→22:06)
[2021-11-18] MEDS: fentaNYL Drip 2500mCg/250mlNS 250 ML IV SCH (14:30)
[2021-11-18] MEDS: DOBUTamine 1000MCG/ML 250 ML IV SCH (16:00)
[2021-11-18 17:33] LABS: INR 0.89 (0.9-1.15); Partial Thromboplastin Time 32.7 sec (23.6-33.0)
[2021-11-18] MEDS: ACETAMINOPHEN 500 MG TAB PO PRN (18:00)
[2021-11-18 18:48] LABS: Hematocrit 32.7 % (41.0-53.0); Hemoglobin 10.6 g/dL (13.5-17.5)
[2021-11-18] MEDS: ATORVASTATIN 20 MG TAB PO SCH (22:00)
[2021-11-19] VITALS (27 sets, daily range): BP systolic 64–105; BP diastolic 33–57
[2021-11-19] MEDS: ACCU-CHEK COMFORT CURVE STRIP VI SCH ×3 (00:03→06:24)
[2021-11-19 00:39] LABS: Hematocrit 32.6 % (41.0-53.0); Hemoglobin 10.3 g/dL (13.5-17.5)
[2021-11-19] MEDS: ACETAMINOPHEN 500 MG TAB PO PRN (00:43)
[2021-11-19] MEDS: FREE WATER GT SCH ×2 (01:44→06:24)
[2021-11-19 01:45] LABS: Basophils # (auto) 0 10 ^3/uL (0-0.2); Basophils % (auto) 0.2 % (0.0-2.0); Eosinophils # (auto) 0 10 ^3/uL (0-0.8); Eosinophils % (auto) 0.1 % (0.0-7.0); Hematocrit 32.4 % (41.0-53.0); Hemoglobin 10.3 g/dL (13.5-17.5); Lymphocytes # (auto) 0.1 10 ^3/uL (0.4-5.4); Lymphocytes % (auto) 0.6 % (10.0-50.0); Mean Corpuscular Hemoglobin 28.8 pg (28.0-32.0); Mean Corpuscular Hgb Conc. 31.8 g/dL (32.0-36.0); Mean Corpuscular Volume 90.6 fL (80.0-100.0); Monocytes # (auto) 0.6 10 ^3/uL (0-1.3); Neutrophils % (auto) 96.1 % (37.0-80.0); Nucleated Red Blood Cells % 0.4 %; Red Blood Cells 3.58 10^6/uL (4.5-5.90); Red Cell Distribution Width 15.5 % (11.8-14.3); White Blood Cell 19.8 10^3/uL (4.4-10.8)
[2021-11-19] MEDS: MIDAZOLAM DRIP 50 mg/50mL 50 ML IV SCH (01:46)
[2021-11-19] MEDS: PROPOFOL 100 ML IV SCH ×2 (01:46→05:40)
[2021-11-19] MEDS: fentaNYL Drip 2500mCg/250mlNS 250 ML IV SCH (02:00)
[2021-11-19 02:26] LABS: BUN/Creatinine Ratio 30.7; Calcium 7.4 mg/dL (8.5-10.1); Potassium 4.5 mmol/L (3.5-5.1)
[2021-11-19] MEDS: PHENYLEPHRINE IV 250 ML IV SCH ×3 (03:00→05:41)
[2021-11-19] MEDS ORDERED: ALBUMIN 5% 250 ML IV ONE ×2 (03:09→03:15)
[2021-11-19] MEDS ORDERED: PHENYLEPHRINE IV 250 ML IV ONE (03:11)
[2021-11-19] MEDS: NOREPINEPHRINE 8 MG/250ML KIT 250 ML IV SCH (05:42)
[2021-11-19] MEDS: BUDESONIDE (INHALATION) 0.5 MG/2 ML NEB NEB SCH (05:58)
[2021-11-19] MEDS: SODIUM CHLOR 0.9% PF (SALINE LOCK) 10ML VIAL/SYR IV SCH (06:19)
[2021-11-19] MEDS: InsuLIN REG 1unit/0.01ml Soln (100units/ml) SC SCH (06:24)
[2021-11-19] MEDS ORDERED: PHENYLEPHRINE INJ 40 MG in SODIUM CHL 0.9% 246 ML IV SCH (07:45)
[2021-11-19] MEDS ORDERED: NOREPINEPHRINE BITARTRATE 16 MG in SODIUM CHL 0.9% 234 ML IV SCH (07:45)
[2021-11-19] MEDS ORDERED: VASOPRESSIN 50 UNITS in D5W 5% 247.5 ML IV SCH (08:00)
[2021-11-19] MEDS ORDERED: EPINEPHrine HCL 250 ML IV SCH (08:30)
[2021-11-19] MEDS ORDERED: EPINEPHrine HCL 250 ML IV ONE (08:33)
[2021-11-19] MEDS: ASPirin 81 mg TAB PO SCH (08:52)
[2021-11-19] MEDS: TICAGRELOR 90 MG TAB PO SCH (08:52)
[2021-11-19] MEDS: DIGOXIN 0.125 MG TAB PO SCH (08:52)
[2021-11-19] MEDS: METOPROLOL TARTRATE 25 MG TAB PO SCH (08:53)
[2021-11-19] MEDS: ENOXAPARIN SOD 40 MG/0.4 ML SYRINGE SC SCH (08:53)
[2021-11-19] MEDS ORDERED: EPINEPHrine HCL 1 MG/10 ML SYRG IV ONE (15:29)
== END 2021-11-19 15:30 | DRG 710 ==
LOC: ER 11:57 → TELE 14:21 → CATH ICU 14:29 → ICU WEST 17:05
PROVIDERS: ADMIT Hospitalist; ATTEND Internal Medicine
PROC: 5A12012 Performance of Cardiac Output, Single, Manual (ICD-10-PCS; 2021-11-11)
PROC: 5A1955Z Respiratory Ventilation, Greater than 96 Consecutive Hours (ICD-10-PCS; 2021-11-11)
PROC: 0BH17EZ Insertion of Endotracheal Airway into Trachea, Via Natural or Artificial Opening (ICD-10-PCS; 2021-11-11)
PROC: XW033E5 Introduction of Remdesivir Anti-infective into Peripheral Vein, Percutaneous Approach, New Technology Group 5 (ICD-10-PCS; 2021-11-11)
PROC: 027036Z Dilation of Coronary Artery, One Artery with Three Drug-eluting Intraluminal Devices, Percutaneous Approach (ICD-10-PCS; principal; 2021-11-12)
PROC: 4A023N8 Measurement of Cardiac Sampling and Pressure, Bilateral, Percutaneous Approach (ICD-10-PCS; 2021-11-12)
PROC: B211YZZ Fluoroscopy of Multiple Coronary Arteries using Other Contrast (ICD-10-PCS; 2021-11-12)
PROC: B215YZZ Fluoroscopy of Left Heart using Other Contrast (ICD-10-PCS; 2021-11-12)
PROC: 06HY33Z Insertion of Infusion Device into Lower Vein, Percutaneous Approach (ICD-10-PCS; 2021-11-12)
DX: A41.89 Other specified sepsis (principal); J12.82 Pneumonia due to coronavirus disease 2019; I46.9 Cardiac arrest, cause unspecified; J96.01 Acute respiratory failure with hypoxia; R57.0 Cardiogenic shock; R65.21 Severe sepsis with septic shock; U07.1 COVID-19; D89.839 Cytokine release syndrome, grade unspecified; E11.10 Type 2 diabetes mellitus with ketoacidosis without coma; I50.41 Acute combined systolic (congestive) and diastolic (congestive) heart failure; I21.09 ST elevation (STEMI) myocardial infarction involving other coronary artery of anterior wall; I47.2 Ventricular tachycardia; I25.10 Atherosclerotic heart disease of native coronary artery without angina pectoris; N39.0 Urinary tract infection, site not specified; E11.65 Type 2 diabetes mellitus with hyperglycemia; N18.31 Chronic kidney disease, stage 3a; E66.01 Morbid (severe) obesity due to excess calories; E78.5 Hyperlipidemia, unspecified; E55.9 Vitamin D deficiency, unspecified
CPT/HCPCS: 31500; 36415; 36600; 70450; 71045; 76775; 80048; 80053; 80061; 80202; 80307; 81001; 82010; 82306; 82728; 82805; 82962; 83036; 83605; 83615; 83735; 83930; 84100; 84132; 84443; 84484; 85007; 85014; 85018; 85025; 85027; 85379; 85610; 85730; 86141; 86850; 86900; 86901; 87040; 87070; 87086; 87205; 87426; 93005; 93306; 94003; 94640; 96374; 99152; 99153; 99291; C1874; C9113; G0378; J0153; J0171; J1100; J1815; J2250; J2543; J2704; J7060; P9047